=== PATIENT | female | born 1985 | race Caucasian/White ===

== ENCOUNTER → 2025-10-15 09:09 | Outpatient (CLI) | payer MEDICARE, OTHER, SELFPAY | LOC: RESP 09:14 | PROVIDERS: PCP Physician Assistant Medical; Referring Provider Internal Medicine Critical Care Medicine; Visit Provider Internal Medicine Critical Care Medicine | DX: R05.3 Chronic cough (principal) | CPT/HCPCS: 94060; 94726; 94729 ==